=== PATIENT | female | born 1970 | race American Indian/Alaskan Native ===

== ENCOUNTER 2020-06-15 12:10 | Outpatient (CLI) | payer OTHER ==
--- NOTE | 2020-06-15 14:12 | Ultrasound Report ---
BILATERAL DIGITAL DIAGNOSTIC MAMMOGRAM WITH CAD , 06/15/2020 BILATERAL LIMITED BREAST ULTRASOUND CLINICAL INFORMATION / INDICATION: Patient has bilateral palpable lumps. R92.8 TECHNIQUE: Digital bilateral mammographic imaging was performed. Spot compression views were obtained . Limited ultrasound was performed. This examination was interpreted with the benefit of Computer-Aid ed Detection (CAD) analysis. COMPARISON: Prior mammogram 07/02/2014 FINDINGS: Breast Density: The breasts are heterogeneously dense, which may obscure small masses. MAMMOGRAPHIC FINDINGS: No dominant mass, suspicious calcifications, or architectural distortion in ei ther breast. No definite mammographic correlate is identified in either breast to account for the pal pable lumps bilaterally. There are benign clusters of calcifications scattered throughout both breast s. ULTRASOUND FINDINGS: Targeted ultrasound evaluation was performed of the area of interest. Left breast: In the left breast at 1:00, 7 cm from nipple, there is a small oval well-circumscribed h ypoechoic mass measuring 8 x 4mm. It is unclear if this is a complicated cyst or possible fibroaden leana. Overall features are very benign, however. It is unclear if patient is palpating this small mass . Sonographic evaluation was performed on the upper outer quadrant. Right breast: In the right breast at approximately 10-11:00, 9 cm from nipple, there is a focal hypoe choic masslike area with irregular margins measuring 1.3 x 1.1 cm. This correlates with the patient's palpable area.. No additional abnormal areas are seen within the upper outer quadrant of the right b reast. IMPRESSION: 1. Irregular masslike area is noted sonographically in the right breast at 10-11:00 corresponding to palpable region. Recommend right breast ultrasound for further evaluation. 2. Small 8 mm benign-appearing mass is present in the left breast at 1:00. This is most likely either a small complicated cyst or possible small fibroadenoma. This mass requires no further evaluation. Follow up recommendation: Ultrasound guided biopsy of the right breast. BI-RADS Category 4: Suspicious for Malignancy. A "normal" or negative report should not discourage follow up or biopsy of a clinically significant f inding. A written summary of these findings will be mailed to the patient. The patient will be entered into a mammography reporting system which will generate a reminder letter for the patient's next appointmen t at the appropriate interval. According to the [employer], yearly mammograms are recommended starting at age 40 and continuing as long as a woman is in good health. Breast MRI is recommended for women with an rodolfo roximately 20-25% or greater lifetime risk of breast cancer, including women with a strong family his tory of breast or ovarian cancer and women who have been treated for Hodgkin's disease. Signer Name: Kellee Marie MD Signed: 06/15/2020 2:07 PM Workstation Name: [id number]
== END 2020-06-15 12:11 | disposition home or self-care (01) ==
LOC: MAMMO 12:10
PROVIDERS: ATTEND Internal Medicine
DX: R92.1 Mammographic calcification found on diagnostic imaging of breast (principal); N63.21 Unspecified lump in the left breast, upper outer quadrant
CPT/HCPCS: 77066

== ENCOUNTER 2020-07-05 08:54 | Outpatient (CLI) | payer OTHER ==
--- NOTE | 2020-07-05 10:29 | Ultrasound Report ---
ULTRASOUND GUIDED RIGHT BREAST BIOPSY, 07/05/2020 CLINICAL INFORMATION / INDICATION: RIGHT BREAST MASS N63.0. COMPARISON: Diagnostic bilateral mammogram and bilateral breast ultrasound performed on 06/15/2020. PROCEDURE: Risks, benefits, and indications to the procedure were discussed with the patient in detail, includin g bleeding, infection, hematoma formation, and inadequate tissue sampling. The patient agreed to proc eed with both verbal and written consent. A timeout procedure was performed with two patient identifi ers. Preliminary ultrasound of the right breast demonstrated a stable mass in the 11:00 position located 9 cm from the nipple. The breast was prepped and draped in the usual sterile fashion. Lidocaine 1% wit h and without epinephrine were used for local anesthesia. Under direct ultrasound guidance, multiple core samples were obtained of the right breast mass. A biopsy marker was then placed. Biopsy device was removed and hemostasis achieved with manual pressure. A sterile dressing was applied to the skin. The patient tolerated the procedure without difficulty. No complications were encountered. Postbiopsy instructions were discussed with the patient and given in writing. Specimens were sent to pathology. IMPRESSION: 1. Technically successful ultrasound guided right breast biopsy. Biopsy results are pending and will be reported in an addendum. Signer Name: Howard Tucker MD Signed: 07/05/2020 10:24 AM Workstation Name: [id number]
--- NOTE | 2020-07-05 10:31 | Mammography Report ---
DIGITAL DIAGNOSTIC MAMMOGRAM WITH CAD, -- 07/05/2020 INDICATION: Status post ultrasound-guided right breast biopsy. TECHNIQUE: Digital right mammographic imaging was performed. This examination was interpreted with the benefit of Computer-aided Detection analysis. COMPARISON: Diagnostic bilateral mammogram and bilateral breast ultrasound performed on 06/15/2020. FINDINGS: Breast Density: The breast is heterogeneously dense, which may obscure small masses. Concordant biopsy clip placement is seen in the upper outer right breast, middle depth at the expecte d location of the biopsied mass. No other significant interval changes are identified. IMPRESSION: Expected postbiopsy appearance of the right breast. Please correlate with the pathology report for th e biopsy. Recommended Follow-Up: Clinical exam Post biopsy imaging. A "normal" or negative report should not discourage follow up or biopsy of a clinically significant f inding. A written summary of these findings will be mailed to the patient. The patient will be entered into a mammography reporting system which will generate a reminder letter for the patient's next appointmen t at the appropriate interval. According to the [employer], yearly mammograms are recommended starting at age 40 and continuing as long as a woman is in good health. Breast MRI is recommended for women with an rodolfo roximately 20-25% or greater lifetime risk of breast cancer, including women with a strong family his tory of breast or ovarian cancer and women who have been treated for Hodgkin's disease. Signer Name: Howard Tucker MD Signed: 07/05/2020 10:27 AM Workstation Name: [id number]
== END 2020-07-05 08:55 | disposition home or self-care (01) ==
LOC: SPVWC 08:54
PROVIDERS: ATTEND Internal Medicine
DX: N63.11 Unspecified lump in the right breast, upper outer quadrant (principal); R92.0 Mammographic microcalcification found on diagnostic imaging of breast; N64.89 Other specified disorders of breast
CPT/HCPCS: 88305